=== PATIENT | male | born 1990 | race Two or more races ===

== ENCOUNTER 2021-03-09 08:19 | Emergency (ER) | payer SELFPAY ==
[~2021-03-09] VITALS: Ht 182.9 cm; Wt 96.6 kg
[2021-03-09 08:26] VITALS: BP 126/68
[2021-03-09] MEDS ORDERED: CEFTRIAXONE 1,000 MG ONE (08:45)
[2021-03-09] MEDS ORDERED: CEFTRIAXONE 1,000 MG IM ONE (09:00)
== END 2021-03-09 09:42 | disposition home or self-care (01) ==
LOC: ED 09:16
DX: M25.571 Pain in right ankle and joints of right foot (principal); R36.9 Urethral discharge, unspecified
CPT/HCPCS: 73610; 96372; 99283; J0696; 99284